=== PATIENT | male | born 1945 | race American Indian/Alaskan Native ===

== ENCOUNTER 2016-07-31 06:38 | Day surgery (SDC) | payer MEDICARE ==
[2016-06-24 09:09] VITALS: BMI 31.3
[2016-07-31] MEDS ORDERED: Propofol 10 mg/ml Inj (20 ML) ONE (08:27)
[2016-07-31] MEDS ORDERED: Midazolam 2 MG/2 ML VIAL ONE (08:27)
[2016-07-31] MEDS ORDERED: Lidocaine Hydrochloride 5 ML INJ ONE (08:28)
[2016-07-31] MEDS ORDERED: Bupivacaine 0.5% Inj(30mL) ONE (08:52)
[2016-07-31] MEDS ORDERED: Lactated Ringer's 1,000 ML IV ONE ×3 (09:19→10:20)
[2016-07-31] MEDS: ceFAZolin IV 2 gm in Dextrose 1 GM/50 ML BAG IVPB ONE ×2 (09:20→09:50)
[2016-07-31] MEDS: Lidocaine 2% w Epi 1:100,000 Inj IJ ONE ×2 (09:22→10:13)
[2016-07-31] MEDS ORDERED: Oxycodone/Acetaminophen 5/325 mg Tab PO PRN (10:45)
--- NOTE | 2016-07-31 10:45 | PCM.SURG1 ---
Surgeon's Initial Post Op Note - Surgeon's Notes Surgeon: Rosita Lepe MD Lab Head: Wyatt Cain PA-C Type of Anesthesia: General Endo Anesthesia Administered By: Dr. Zabala Pre-Operative Diagnosis: Left knee medial meniscal tear Operative Findings: tourniquet not used Post-Operative Diagnosis: same Operation Performed: Left knee arthroscopic partial medial meniscectomy, chondroplasty Specimen/Specimens Removed: none Estimated Blood Loss: EBL {In ML}: 5 Blood Products Given: N/A Drains Used: No Drains Post-Op Condition: Fair Date of Surgery/Procedure: 07/31/16 Time of Surgery/Procedure: 10:45
[2016-07-31] MEDS ORDERED: Albuterol HFA 90 mcg/actuation (8 g) ONE (10:47)
[2016-07-31] MEDS ORDERED: Lactated Ringer's 1,000 ML IV SCH (11:15)
[2016-07-31] MEDS ORDERED: HYDROmorphone 0.5 mg/0.5 ml ISec IVP PRN (11:35)
--- NOTE | 2016-07-31 12:10 | OP ---
PROCEDURE DATE: 07/31/2016 PREOPERATIVE DIAGNOSES: Left knee medial meniscal tear and degenerative joint disease. POSTOPERATIVE DIAGNOSES: Left knee medial meniscal tear and degenerative joint disease. PROCEDURE: Left knee arthroscopy with medial meniscectomy. SURGEON: MD Dr. Roberth Toscano was assisted by Sage Cain, physician registered nurse first assistant. Miss Cain was scrubbed and present throughout the case. She assisted with preoperative positioning of the patient, manipulating the ex tremity during the arthroscopy and wound closure. ANESTHESIA: General. COMPLICATIONS: None. ESTIMATED BLOOD LOSS: 5 mL. INDICATIONS FOR PROCEDURE: This is a 71-year-old gentleman who presented with complaints of left kne e pain and swelling. Clinical examination was consistent with medial joint line tenderness and posit adam Giovany and a small effusion. MRI examination was consistent with degenerative joint disease of the knee as well as a complex tear of his medial meniscus. After a period of failed nonsurgical man agement, recommendation was for a left knee arthroscopy. The risks, benefits, and alternatives of pr ocedure were discussed with the patient including the possibility of persistent pain because of his a rthritis. He understood these risks and informed consent was obtained. OPERATIVE PROCEDURE: After surgical site was found and verified in preoperative holding area, the pa tient was taken to the operating room and placed supine on the operating table. After administration of general anesthesia, patient received 2 grams of Ancef IV. A tourniquet was placed about the left thigh. Care was taken to make sure all bony prominences and nerves were well padded and positioned. A lateral post was placed along the left thigh and the left lower extremity was prepped and draped in usual sterile fashion. The bony landmarks were identified about the left knee and our portal site s were injected with a total 10 mL of 1% lidocaine with epinephrine. Anterolateral arthroscopy alannah l was established and arthroscope inserted into the knee joint. 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 The medial and lateral gutters as well as suprapatellar recess were noted to be free of any loose bodies or pathologic plica. Next, the medial compartment was evaluated through an anterom edial portal. The medial meniscus was probed and the patient was noted to have a complex tear of the posterior horn extending to the mid portion of the meniscus. Using a combination of basket forceps and a full-radius shaver, a meniscectomy was performed, resecting the meniscus back to a small but st able rim. The chondral surface of the medial femoral condyle on the weightbearing portion was noted to have some grade III chondromalacia. This area was probed. No loose flaps of cartilage were appre ciated. At this point, the intercondylar notch was evaluated. ACL was well visualized and was noted to have some interstitial tearing. The ACL was probed and was noted to have some mild laxity, but w as otherwise competent. PCL was also well visualized and appeared to be intact. Next, the lateral c ompartment was evaluated. Lateral meniscus was probed and lateral meniscus was intact. Popliteus te ndon was well visualized and appeared to be intact. Chondral surfaces of the lateral compartment wer e noted to have minimal changes. At this point, the knee joint was irrigated through the arthroscopi c cannula and all instruments were removed. Our portal sites were closed using interrupted 3-0 Vicry l suture and Dermabond for the skin. A sterile dressing was applied. The patient was awakened from the procedure, taken to the recovery room in stable condition. Flynn Lepe MD cc: [id number] TT: 07/31/2016 12:09:21 en
[2016-07-31 12:31] VITALS: BP 117/90; PULSE 77; RESP 18; TEMP 97; O2SAT 97
== END 2016-07-31 13:30 | disposition home or self-care (01) ==
LOC: C.SDS 06:38
PROVIDERS: ATTEND Orthopaedic Surgery
DX: S83.242A Other tear of medial meniscus, current injury, left knee, initial encounter (principal); M17.12 Unilateral primary osteoarthritis, left knee; X58.XXXA Exposure to other specified factors, initial encounter
CPT/HCPCS: 29881; 82948; 97116; 97161; G8978; G8979; G8980; J0171; J0690; J2250; J2704; J3010; J7120